=== PATIENT | female | born 1985 | race Caucasian/White ===

== ENCOUNTER 2018-09-07 10:09 | Outpatient (CLI) | payer BC ==
--- NOTE | 2018-09-08 08:57 | Mammography Report ---
Reason: ROUTINE MAMMO Procedure Date: 09/07/2018 Accession Number: [id number] / [id number] Procedure: MGN - Screening Mammo Dig Bilat CPT Code: FULL RESULT: EXAM: Screening Mammo Dig Bilat DATE: 09/07/2018 10:34 AM CLINICAL HISTORY: Screening encounter. Family history of breast cancer in the mother at the age of 45. TECHNIQUE: (B) - Bilateral CC and MLO views were obtained. COMPARISON: Baseline mammogram. PARENCHYMAL PATTERN: (D) - The breast(s) demonstrate(s) heterogeneously dense fibroglandular parenchyma. FINDINGS: Comparing the right to the left side there is markedly asymmetric difference in breast parenchymal density within the normal distribution of the breast cone. There are no associated suspicious findings, no lymph nodes or skin thickening or architectural distortion. Based on absence of prior comparison on this baseline mammogram, additional right breast ultrasound would be helpful for characterization, alternatively or in addition, if the patient risk factors warrant, high-risk screening breast MRI could be considered. There are no suspicious masses, calcifications, or areas of distortion. IMPRESSION: Incomplete examination. BI-RADS category 0. RECOMMENDATION: (ADDUS) - Targeted ultrasound recommended. Right breast ultrasound, consideration for screening breast MRI depending on risk factors. BI-RADS CATEGORY: (0) - Incomplete Examination - need additional evaluation. STANDARD QUALIFYING STATEMENTS: 1. This examination was not reviewed with the aid of Computer-Aided Detection (CAD). 2. A negative or benign imaging report should not preclude biopsy if clinically suspicious findings are present. 3. Dense breasts may obscure an underlying neoplasm. 4. This examination was reviewed without the aid of 3D breast imaging (tomosynthesis).
== END 2018-09-07 10:10 | disposition home or self-care (01) ==
LOC: DI.N 10:09
DX: Z12.31 Encounter for screening mammogram for malignant neoplasm of breast (principal); Z80.3 Family history of malignant neoplasm of breast; Z78.9 Other specified health status
CPT/HCPCS: 77067

== ENCOUNTER 2018-09-13 09:25 | Outpatient (CLI) | payer BC ==
--- NOTE | 2018-09-13 11:52 | Ultrasound Report ---
Reason: ABNORMAL MAMMOGRAM Procedure Date: 09/13/2018 Accession Number: [id number] / [id number] Procedure: US - Breast Unilateral Limited CPT Code: FULL RESULT: EXAM: Breast Unilateral Limited DATE: 09/13/2018 10:30 AM CLINICAL HISTORY: ABNORMAL MAMMOGRAM. History of mother with breast cancer at age 45. COMPARISON: 09/07/2018 mammogram. TECHNIQUE: Targeted ultrasound was performed of the right breast in the area of mammographic concern upper outer quadrant. Color Doppler was employed as appropriate. FINDINGS: There is no dominant cystic or solid mass, abnormal fluid collection, shadowing, or obvious architectural distortion. Dense breast tissue is present. IMPRESSION: Negative right upper outer quadrant breast ultrasound. RECOMMENDATION: Repeat mammogram at age 40, if not before, given the family history of breast cancer. Clinical self-examination. BIRADS CATEGORY 1: Negative RADIA
== END 2018-09-13 09:26 | disposition home or self-care (01) ==
LOC: DI 09:25
PROVIDERS: ATTEND Physician Assistant Medical
DX: R92.8 Other abnormal and inconclusive findings on diagnostic imaging of breast (principal); Z80.3 Family history of malignant neoplasm of breast
CPT/HCPCS: 76642

== ENCOUNTER 2021-09-10 08:00 | Outpatient (CLI) | payer BC, OTHER | END 2021-09-10 23:59 | disposition home or self-care (01) | LOC: LAB.N 08:00 | PROVIDERS: ATTEND Nurse Practitioner | DX: N39.0 Urinary tract infection, site not specified (principal) | CPT/HCPCS: 87086 ==

== ENCOUNTER 2021-11-14 15:04 | Outpatient (CLI) | payer OTHER ==
--- NOTE | 2021-11-15 16:31 | Mammography Report ---
BILATERAL DIGITAL SCREENING MAMMOGRAM 3D/2D: 11/14/2021 CLINICAL: Family history of breast cancer. Routine screening. Comparison is made to exams dated: 09/13/2018 ultrasound and 09/07/2018 mammogram - [facility]. Both breasts are heterogeneously dense, which may obscure small masses (category c / 51-75% glandula r tissue). No significant masses, calcifications, or other findings are seen in either breast. There has been no significant interval change. IMPRESSION: NEGATIVE There is no mammographic evidence of malignancy. A 1 year screening mammogram is recommended. Based on Tyrer-Cuzick model (a risk assessment model), the patient's lifetime risk is 22.9% and her 1 0 year risk is 2.1%. If a patient has an elevated risk, a more comprehensive evaluation should be con sidered and/or a referral to a genetic counselor. The [place] [employer], [place] [employer], and NCCN Guidelines advise the consideration of Breast MRI as an adjunct to screening mammog gm in patients whose "Lifetime risk to develop breast cancer" is 20% or higher. This exam was interpreted at Station ID: [id number]. NOTE: For mammograms, a report in lay terms will be sent to the patient. Approximately 15% of breast malignancies will not be visualized mammographically. In the management of a palpable breast mass, a negative mammogram must not discourage biopsy of a clinically suspicious lesion. Electronically Signed By: Ramiro Daigle M.D. aty/hannah:11/15/2021 12:48:02 ACR BI-RADS Category 1: Negative 3341F PARENCHYMAL PATTERN: (D) - The breast(s) demonstrate(s) heterogeneously dense fibroglandular darvin ochoa. BI-RADS CATEGORY: (1) - 1 RECOMMENDATION: (ANNUAL) - Recommend routine annual screening mammography. [id number] 1 year screening LATERALITY: (B)
== END 2021-11-14 15:05 | disposition home or self-care (01) ==
LOC: DI.N 15:04
DX: Z12.31 Encounter for screening mammogram for malignant neoplasm of breast (principal); Z80.3 Family history of malignant neoplasm of breast